=== PATIENT | male | born 1945 | race Caucasian/White ===

== ENCOUNTER → 2017-09-09 | Outpatient (CLI) | payer MEDICARE ==
[~2017-09-09] MED LIST: ANACIN 400-321 EACH PO; ASPIR 8181 M1 PO; ASPIRIN EC325 MG PO; BONINE25 MG PO; FLEXERIL10 MG PO; NAPROSYN500 MG PO; NATOKINASE PO; TRAMADOL HCL50 MG PO
== END | disposition home or self-care (01) ==
LOC: CDC 10:13
DX: Z01.810 Encounter for preprocedural cardiovascular examination (principal); N40.1 Benign prostatic hyperplasia with lower urinary tract symptoms; N13.8 Other obstructive and reflux uropathy; R00.1 Bradycardia, unspecified
CPT/HCPCS: 93000